=== PATIENT | male | born 1955 | race Caucasian/White ===

== ENCOUNTER → 2017-02-15 | Outpatient (CLI) | payer MEDICARE, OTHER ==
--- NOTE | ~2017-02-15 | PROC NOTE ---
[place], [place] PROCEDURE NOTE NAME: BHARAT HAIRSTON UNIT #: [id number] ROOM: DOCTOR: ROMAN CASTILLO BIRTHDATE: [birth year] DOS: 02/15/2017 MODIFIED BARIUM SWALLOW DOCTOR: RADIOLOGIST: Dr. Ortiz. BACKGROUND INFORMATION: The patient is a 61-year-old male who was seen for a modified barium swallow. This test was ordered to rule out silent aspiration and determine safety with p.o. intake. The patient reported his medical history and stated that he presented to [facility] with pneumonia on December 29, 2016. At that time, he also suffered a heart attack and respiratory failure with need for tracheostomy and mechanical ventilation. He has been weaned from the vent; however, he does still present with a trach. The patient wore a cuffed trach. His cuff was deflated and a Passy-Landen speaking valve was worn, which enabled him to successfully vocalize. The patient was alert and easily able to follow commands for the assessment. He reported that he has been undergoing [facility]. He has been given daily trials with regular food and thin liquid and stated that he has been doing well. He receives primary nutrition by G-tube and is looking to be able to eat by mouth, therefore this study is being conducted. Oral peripheral examination revealed presence of natural teeth with some missing. Lingual, labial, and buccal skills were within normal limits in terms of strength, range of motion, and coordination. Volitional cough was congested. Volitional swallow was weak. METHODS AND MATERIALS USED FOR THE EXAM: The patient was positioned in the lateral plane and examination was viewed under fluoroscopy. The patient was presented with a variety of consistencies to assess swallowing skills including applesauce mixed with barium presented in three-quarter teaspoon amounts, barium-coated banana and bread presented in bite size pieces and thin liquid barium taken by cup and straw. ORAL PHASE: Unremarkable. PHARYNGEAL PHASE: Unremarkable. ESOPHAGEAL PHASE: This phase of the swallow was not formally assessed during this examination. IMPRESSIONS AND RECOMMENDATIONS: Based upon assessment results, this patient displayed safe tolerance for all consistencies given including pureed, solids and thin liquid by cup and straw. It is recommended that the patient begin oral feeding with a regular diet and thin liquids. Safe swallow strategies to implement include upright positioning for meals, small bites and sips, eating slowly and alternating liquids and solids. Results and recommendations were shared with the patient and he verbalized understanding of all information provided. A written copy of recommendations was also sent for education of jail staff. Recommend continued dysphagia therapy for this patient at the jail. [place], [place] PROCEDURE NOTE NAME: BHARAT HAIRSTON UNIT #: [id number] ROOM: DOCTOR: ROMAN CASTILLO BIRTHDATE: [birth year] Thank you very much for this referral. Should you have any questions regarding this patient, please contact the speech pathologist at [phone]. ROMAN CASTILLO CM:PROCNOTE:PROCEDURE NOTE [id number] ROMAN CASTILLO
--- NOTE | ~2017-02-15 | SLPPN ---
[place], [place] AZURE DEVELOPER PROGRESS NOTE NAME: BHARAT HAIRSTON UNIT #: [id number] ROOM: DOCTOR: LEXI TUBBS MD,SHANA Speech Language Pathology Treatment Note Page 1 of 1 Patient Name: BHARAT HAIRSTON Date: 02/15/2017 10:05 AM : 1955 SOC Date: 02/15/2017 [facility]: [facility] Provider #: [id number] Treating Clinician: LIAT Hurtado-AZURE DEVELOPER Referring Physician: SHANA TUBBS Onset Date Code Description Primary Diagnosis: 02/15/2017 DYS.PHAGIA DYSPHAGIA Time In: 09:00 AM Time Out: 10:00 AM AZURE DEVELOPER Interventions and CPT Codes Consisted of: CPT Code Modifiers Minutes Units MOTION FLUOROSCOPY/SWALLOW 52528 60 1 Total Minutes: 60 Total Timed Minutes: 0 Total Untimed Minutes: 60 Total Units: 1 Total Timed Units: 0 Total Untimed Units: 1 02/15/2017 10:06:20 AM LIAT Hurtado-DRE Date/Time State License #: [id number] CM:YOSHI 1019 1019 [facility] THER[facility] [place]
--- NOTE | ~2017-02-15 | SLPPOC ---
[place], [place] SECURITY INSTALLATION SALES TECHNICIAN PLAN OF CARE NAME: BHARAT HAIRSTON UNIT #: [id number] ROOM: DOCTOR: SHANA POPE FACP, MD Speech Language Pathology Plan of Care Page 1 1 (Initial Evaluation) of Patient Name: BHARAT HAIRSTON Date: 02/15/2017 10:01 AM : 1955 SOC Date: 02/15/2017 Provider: [facility] Provider #: [id number] Treating Clinician: LIAT Hurtado-SECURITY INSTALLATION SALES TECHNICIAN Referring Physician: SHANA TUBBS Medicare #: [id number] Visits From SOC: 1 Onset Date Description Code Primary Diagnosis: 02/15/2017 DYS.PHAGIA DYSPHAGIA Subjective Comments: Initial evaluation created to initiate the electronic medical record. Please see [employer] for details. Initial Level Goals Functional Limitation Reporting Swallowing G8996 - Swallowing functional limitation, current status at therapy episode outset and at reporting intervals Current Status: CH - 0 percent impaired, limited or restricted G8997 - Swallowing functional limitation, projected goal status, at therapy episode outset, at reporting intervals, and at discharge or to end reporting Goal Status: CH - 0 percent impaired, limited or restricted G8998 - Swallowing functional limitation, discharge status, at discharge from therapy or to end reporting Discharge Status: CH - 0 percent impaired, limited or restricted 02/15/2017 10:04:39 AM SHANA TUBBS Date/Time LIAT Hurtado-SECURITY INSTALLATION SALES TECHNICIAN Date I certify the need for these services furnished under this plan of treatment while under my care. State License #: [id number] CM:SLPPOC 1019 1019 [facility] THER[facility] [place]
--- NOTE | ~2017-02-15 | SLPIE ---
[place], [place] PROFESSOR OF COUNSELING INITIAL EVALUATION NAME: BHARAT HAIRSTON UNIT #: [id number] ROOM: DOCTOR: LEXI TUBBS MD,SAHNA Speech Language Pathology Initial Evaluation Page 1 1 of Patient Name: BHARAT HAIRSTON Date: 02/15/2017 10:01 AM : 1955 SOC Date: 02/15/2017 Provider: [facility] Provider #: [id number] Treating Clinician: LIAT Hurtado-DRE Referring Physician: SHANA TUBBS Patient Information Address: [address] [place] [address] Physician: SHANA TUBBS Physician #: [facility], [facility], Zip: [place], [place] [address] Occupation: Unknown # of Approved Visits: 0 Gender: Male Washer Assembler: OLGA HAIRSTON Medicare #: [id number] Rehabilitation Information / History Onset Date Code Description Primary Diagnosis: 02/15/2017 DYS.PHAGIA DYSPHAGIA Subjective Comments: Initial evaluation created to initiate the electronic medical record. Please see [employer] for details. Clinical Findings Functional Goals Functional Limitation Reporting Swallowing G8996 - Swallowing functional limitation, current status at therapy episode outset and at reporting intervals Current Status: CH - 0 percent impaired, limited or restricted G8997 - Swallowing functional limitation, projected goal status, at therapy episode outset, at reporting intervals, and at discharge or to end reporting Goal Status: CH - 0 percent impaired, limited or restricted G8998 - Swallowing functional limitation, discharge status, at discharge from therapy or to end reporting Discharge Status: CH - 0 percent impaired, limited or restricted 02/15/2017 10:04:39 AM JOANIE Hurtado Date/Time State License #: [id number] CM:FAYE 1018 1017 [facility] THERAP[facility] [place]
== END | disposition home or self-care (01) ==
LOC: RAD/SH 09:00
DX: J18.9 Pneumonia, unspecified organism (principal); Z93.0 Tracheostomy status

== ENCOUNTER → 2017-04-24 | Day surgery (SDC) | payer MEDICARE, OTHER ==
[~2017-04-24] VITALS: Ht 177.8 cm; Wt 95.7 kg
[~2017-04-24] MED LIST: ASPIRIN81 M1 PO; GLIPIZIDE XL10 M1 PO; INCRUSE EL62.5 MCG/A INH; LISINOPRIL20 MG PO; LOVASTATIN20 MG PO; OXYCONTIN20 M1 PO; SOMA350 MG PO; SYMBICORT1 AE1 INH; TOPROL XL25 MG PO; VENTOLIN H0.09 MG/AC INH; XANAX0.5 MG PO; ZYRTEC10 MG PO
--- NOTE | ~2017-04-24 | PROC NOTE ---
[place], [place] PROCEDURE NOTE NAME: BHARAT HAIRSTON UNIT #: [id number] ROOM: DOCTOR: STEPHANIE PÉREZ MD,BIJU BIRTHDATE: [birth year] DOS: 04/24/2017 PROCEDURE: Bronchoscopy. PREOPERATIVE DIAGNOSES: The patient with cough as well as shortness of breath endotracheal stenosis. The patient has past history of tracheostomy decannulation. POSTOPERATIVE DIAGNOSES: 1. The patient with cough as well as shortness of breath endotracheal stenosis. The patient has past history of tracheostomy and decannulation. 2. Mucus impaction of the airways. PROCEDURE DESCRIPTION: Informed consent was obtained from the patient. The patient was brought to the OR and placed in supine position. Conscious sedation administered by the Anesthesia Department. After achieving appropriate sedation, airway was introduced into the mouth. Bronchoscope was advanced into the airway into laryngeal area. Epiglottis and vocal cords were seen. Bronchoscope was advanced to the vocal cord and tracheal lumen. The tracheal lumen of the patient was noted with [id number] narrowing at the site of tracheostomy with some granulation tissue. The tracheal lumen was able to be identified further down with the bronchoscope without difficulty. The bronchoscope was advanced to the distal portion of the trachea, which shows small to moderate amount of mucoid secretion that was suctioned out. The bao was identified. Right upper, right middle, right lower, left upper, lingula, lower lobe bronchi were all examined with moderate amount of mucus present in endobronchial tree, suctioned out. There was no endobronchial obstructive lesion. The procedure was tolerated by the patient. Postoperative finding will be discussed with the patient later once the patient recovers the effects of acute sedation. BIJU BROWN MD CM:PROCNOTE:PROCEDURE NOTE [id number] BIJU PÉREZ MD
[2017-04-24 08:00] VITALS: BP 150/89
[2017-04-24 08:46] VITALS: BP 149/71
[2017-04-24 09:00] VITALS: BP 116/61
[2017-04-24 09:16] VITALS: BP 115/63
[2017-04-25 15:09] LABS: ACID FAST SPEC PROCESSING Concentration (.)
== END | disposition home or self-care (01) ==
LOC: SDC 04-21 14:00
PROVIDERS: Internal Medicine Critical Care Medicine
DX: J98.09 Other diseases of bronchus, not elsewhere classified (principal); I10 Essential (primary) hypertension; E11.9 Type 2 diabetes mellitus without complications; Z93.0 Tracheostomy status; I25.10 Atherosclerotic heart disease of native coronary artery without angina pectoris; J44.9 Chronic obstructive pulmonary disease, unspecified; F41.9 Anxiety disorder, unspecified; F32.9 Major depressive disorder, single episode, unspecified; Z98.890 Other specified postprocedural states

== ENCOUNTER 2017-05-03 12:42 | Inpatient (IN) | payer MEDICARE, OTHER ==
[~2017-05-03] VITALS: Ht 177.8 cm; Wt 101.2 kg
--- NOTE | ~2017-05-03 | DS ---
[place], [place] DISCHARGE SUMMARY [id number] UNIT #: [id number] ROOM: 528 DOCTOR: BIJU DAWKINS MD BIRTHDATE: [birth year] DOS: 05/05/2017 CHIEF COMPLAINT: Medical management of acute severe tracheobronchitis with acute exacerbation of chronic obstructive pulmonary disease, failed outpatient treatment. HOSPITAL COURSE: A 61-year-old white male admitted to the hospital, was started on treatment with intravenous cefepime and IV Solu-Medrol for the medical management of acute tracheobronchitis Pseudomonas aeruginosa. The patient noted questionable rash of the upper extremities. His antibiotics were changed to meropenem, which has been tolerated by the patient at 1 gram b.i.d. The patient received the antibiotic. The patient without any side effects. Steroids were used for this patient. Moderate uncontrolled hyperglycemia noted secondary to use of the corticosteroids. The respiratory symptoms have been improving at this time. The patient has been planned for discharge as an outpatient therapy. Chest x-ray of the patient was done, does not show any acute pulmonary infiltration. He has PICC line inserted successfully yesterday in the left arm without any difficulty and complications. Cough has been improving. The patient at this time progressive reduction in symptoms of shortness of breath and wheezing has been resolved on physical examination. At this time, the patient reached the maximum benefit of the inpatient treatment and will be discharged home for followup as an outpatient. He has been arranged meropenem 1 gram IV b.i.d. for the next 7 days and we will continue tapering dose of prednisone. He was continued bronchodilators. Tobacco cessation. The patient was advised for this patient as well in the future. He was noted with the tracheal stenosis secondary to previous tracheostomy and he will be sent for intervention for tracheal stenosis as an outpatient to another physician. BIJU BROWN MD CM:FLETCHER [id number] BIJU PÉREZ MD 05/05/17 1612 interface
--- NOTE | ~2017-05-03 | PR ---
[place], [place] PROGRESS NOTE NAME: BHARAT HAIRSTON UNIT #: [id number] ROOM: 528 DOCTOR: BIJU DAWKINS MD BIRTHDATE: [birth year] DOS: 05/04/2017 PULMONARY FOLLOWUP NOTE SUBJECTIVE: The patient has been noted without any acute distress at the present time. He has been noted reduction of the cough. He has been started on cefepime based on sensitivity results for the Pseudomonas aeruginosa tracheobronchitis. The patient developed some rash in the upper extremities and also stated blotchy has occurred and he was administered cefepime yesterday. He denies symptoms of chest pain. Shortness of breath and wheezing has been noted, reduced partially from yesterday. OBJECTIVE: VITAL SIGNS: For the patient which was recorded shows the temperature noted as normal, respiratory rate 20, heart rate 98, blood pressure 140/57. Pulse oxygen saturation on room air was 97% saturation this morning. HEENT: Remains unchanged, trachea without scar. NECK: Remains unchanged as compared from previously. ABDOMEN: Soft, nontender, bowel sounds present. CENTRAL NERVOUS SYSTEM: Noted without any gross focal deficit. LABORATORY DATA: CBC this morning was noted as normal CBC. CMP of the patient of 05/04/2017 was noted with glucose 294, BUN and creatinine were normal. Other labs were normal. IMPRESSION: 1. The patient with acute tracheobronchitis with Pseudomonas aeruginosa. 2. Allergy to CEFEPIME. 3. Acute exacerbation of chronic obstructive pulmonary disease with hyperglycemia secondary to corticosteroids. PLAN OF MANAGEMENT: Continue current dose of corticosteroids and bronchodilators. Discontinue cefepime. Start the patient on meropenem 1 gram IV b.i.d. Continue management of the hyperglycemia. Other supportive therapy, plan and management as in progress. DVT prophylaxis, the patient will be added to the treatment. Usual care, other supportive plan of management. Further treatment changes will be done based on progression of the illness. PT and OT consultation has been ordered. assisted facility consultation was asked for this patient as well. [place], [place] PROGRESS NOTE NAME: BHARAT HAIRSTON UNIT #: [id number] ROOM: 528 DOCTOR: BIJU DAWKINS MD BIRTHDATE: [birth year] BIJU BROWN MD CM:PNTRANS [id number] BIJU PÉREZ MD 05/04/17 1414 interface
--- NOTE | ~2017-05-03 | WRIGHTHP ---
[place], [place] PATIENT HISTORY AND PHYSICAL EXAM [id number] UNIT #: [id number] ROOM: 528 DOCTOR: BIJU DAWKINS MD BIRTHDATE: [birth year] DOS: 05/03/2017 REASON FOR ADMISSION: Nonresolving cough with Pseudomonas aeruginosa resistant to all the oral antibiotic and intravenous therapy and also worsening of the wheezing and other respiratory symptoms. HISTORY OF PRESENT ILLNESS: This is a 61-year-old white male who has been known with past history of tracheostomy which has been decannulated for the management of acute respiratory failure. The patient has been recently noted with tracheal stenosis. The patient with granulation tissue formation at the tracheal site for this patient with past tracheostomy. He has bronchoscopy done that shows evidence of moderate growth of Pseudomonas aeruginosa resistant to the oral antibiotic. The patient has been noted to have progressive increase in cough with fatigue as well as shortness of breath and wheezing. He has been using his medication for COPD management and not responding to treatment. The patient was advised to for hospitalization. The patient has been admitted to the hospital today for further medical management. He has been still noted with symptoms of cough which has been noted with a small amount of sputum expectoration at this time. The cough has been noted to be mildly severe in intensity. Shortness of breath occurs with exertion and wheezing was still noted with minimal exertion and at rest as well. REVIEW OF SYSTEMS: CONSTITUTIONAL: Fatigue and tiredness noted without symptoms of fever or chills. EYES: Denies any burning, redness or tenderness. EARS, NOSE, THROAT: No sore throat, hoarseness, otalgia or postnasal drainage. CARDIOVASCULAR: Denies anginal pain, edema or pain of the lower extremities. GASTROINTESTINAL: Denies dysphagia, nausea, vomiting, diarrhea, abdominal pain, hematemesis, melena, hematochezia or abnormal weight loss. GENITOURINARY: Denies dysuria, suprapubic pain or hematuria. SKIN: Denies lesions or rashes except RASHES OCCURRED YESTERDAY THE PATIENT WAS ADMINISTERED CEFEPIME ANTIBIOTIC. CENTRAL NERVOUS SYSTEM: No dizziness, headache, diplopia or syncopal episode. The patient has been noted with intermittent forgetfulness for the past several months. HOME MEDICATIONS: Metoprolol succinate, simvastatin, lisinopril, Plavix, aspirin, glipizide, Symbicort HFA inhaler and other p.r.n. medications. PAST MEDICAL HISTORY: 1. History of COPD. 2. ____ anxiety neurosis. 3. Type 2 diabetes mellitus. 4. Essential hypertension. 5. Hypercholesterolemia. 6. Chronic moderate obesity. 7. History of peripheral vascular disease. SOCIAL HISTORY: The patient is , has one child. Denies history of [place], [place] PATIENT HISTORY AND PHYSICAL EXAM NAME: BHARAT HAIRSTON UNIT #: [id number] ROOM: 528 DOCTOR: YANG DAWKINS MDM BIRTHDATE: [birth year] alcohol or illicit drug use. Tobacco use is noted up to two packs of cigarettes per day. The patient started in the teens, which was discontinued on 12/30/2016. PAST SURGICAL HISTORY: 1. T and A. 2. Popliteal artery surgery with stent placement. 3. Right renal artery stent insertion. 4. Carpal tunnel release. 5. Tracheostomy in 12/2016. 6. PEG tube insertion in 12/2016, PEG tube and the tracheostomy both have been removed. 7. Fiberoptic bronchoscopy on 04/24/2017. FAMILY HISTORY: Father at 62 years from complication of pulmonary embolism. Mother is currently living, 62 years old with history of bronchial asthma. PHYSICAL EXAMINATION: GENERAL: A 61-year-old white male, currently noted to be awake and alert without any distress. VITAL SIGNS: Height of 5 feet 10 inches, weight of 223 pounds, BMI 31.9. Normal temperature noted on admission, respiratory rate 20, heart rate 95, blood pressure 141/65. Pulse oxygen saturation noted on room air is 95% saturation at rest. HEENT: Head atraumatic. Eyes nonicterus. NECK: Previous tracheal scar noted in the lower portion of the neck. CARDIOVASCULAR: S1, S2 is audible. LUNGS: Noted with general reduction in breath sounds with moderate expiratory wheezing. There are no crackles. ABDOMEN: Soft, nontender. Bowel sounds present. CENTRAL NERVOUS SYSTEM: The patient is noted to have cranial nerves 2-12 intact. No focal deficits. MUSCULOSKELETAL: Does not show any acute deformities. SKIN: Shows fine rash in the upper extremities at the present time. LABORATORY DATA: Bronchial washings from 04/24/2017 showed moderate growth of Pseudomonas aeruginosa, resistant to fluoroquinolones and noted sensitive to the Primaxin, meropenem, cefepime and ceftazidime. It was also noted to be resistant to the tobramycin. Acid fast bacillus for the patient, initially reported as negative, pending culture results from 04/24/2017. CBC on 05/03/2017, on admission WBC count was normal, hemoglobin 13.5, hematocrit 40.6 and platelet count 157,000. The CMP on admission on 05/03/2017, glucose 298, BUN and creatinine were normal, remaining CMP was normal. Chest x-ray previous in the office does not show an acute infiltration. IMPRESSION: 1. The patient has been noted with failed outpatient treatment with acute exacerbation of chronic obstructive pulmonary disease with resistant pulmonary infection. The patient with bronchitis with Pseudomonas aeruginosa. [place], [place] PATIENT HISTORY AND PHYSICAL EXAM NAME: BHARAT HAIRSTON UNIT #: [id number] ROOM: 528 DOCTOR: STEPHANIE PÉREZ MD,BIJU BIRTHDATE: [birth year] 2. Previous history of nicotine abuse. The patient has discontinued previously. 3. History of peripheral vascular disease. 4. Type 2 diabetes mellitus. 5. 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 6. Agkl-ku-liiaomng obesity. 7. Essential hypertension. 8. Intermittent forgetfulness, possibility was not clear. PLAN OF TREATMENT: The patient has been started on IV Solu-Medrol, bronchodilators and sliding insulin coverage. Home medications have been resumed. IV cefepime was started as well. The cefepime will be changed to another antibiotic because of the current allergies. Bronchodilators have been ordered every 4 hours. Followup the respiratory status closely. Possible senior living facility placement, outpatient therapy and antibiotics. The patient is settled on the current medications. Usual care, other supportive plan of therapy and care. BIJU BROWN MD CM:HISPHYS:PATIENT HISTORY AND PHYSICAL EXAMINATION [id number] BIJU PÉREZ MD 05/04/17 1606 interface
[2017-05-03 12:00] VITALS: BP 141/65
[2017-05-03 14:25] LABS: BASO # 0.1 10*3/uL (0.0-0.1); BASO % 0.7 % (0.0-1.0); HEMATOCRIT 40.6 % (42.0-52.0); HEMOGLOBIN 13.5 g/dl (14.0-18.0); LYMPH # 2.2 10*3/uL (1.3-4.4); LYMPH % 30.9 % (27.0-41.0); MEAN CELL VOLUME 93.8 fl (80.0-94.0); MEAN CORPUSCULAR HGB 31.2 pg (27.0-31.0); MEAN CORPUSCULAR HGB CONC 33.3 g/dl (33.0-37.0); MEAN PLATELET VOLUME 10.9 fl (9.6-12.3); MONO # 0.5 10*3/uL (0.1-1.0); MONO % 7.3 % (3.0-9.0); NEUT # 4.3 10*3/uL (2.3-7.9); NEUT % 60.8 % (47.0-73.0); PLATELET COUNT AUTOMATED 157 10*3/uL (130-400); RED BLOOD COUNT 4.33 10*6/uL (4.50-5.90); RED CELL DISTRI WIDTH 13.2 % (0-14.5)
[2017-05-03 14:33] LABS: ALBUMIN 3.2 gm/dl (3.1-4.5); ALKALINE PHOSPHATASE 77 U/L (45-117); BILIRUBIN, TOTAL 0.2 mg/dl (0.2-1.0); BUN 18 mg/dl (7-24); CARBON DIOXIDE 28 mmol/L (21-32); CHLORIDE 99 mmol/L (98-107); EST GLOM FILT AFRICAN AMERICAN > 60 ml/min; GLUCOSE 298 mg/dL (65-99); POTASSIUM 3.9 mmol/L (3.5-5.1); SGOT/AST 16 IU/L (3-35); SGPT/ALT 28 U/L (12-78); SODIUM 136 mmol/L (136-145)
[2017-05-03 16:00] VITALS: BP 107/71
[2017-05-03 20:00] VITALS: BP 131/81
[2017-05-04] VITALS: BP 149/59
[2017-05-04 07:16] LABS: BASO % 0.1 % (0.0-1.0); HEMATOCRIT 43.4 % (42.0-52.0); HEMOGLOBIN 14.7 g/dl (14.0-18.0); LYMPH # 0.9 10*3/uL (1.3-4.4); LYMPH % 8.7 % (27.0-41.0); MEAN CELL VOLUME 93.3 fl (80.0-94.0); MEAN CORPUSCULAR HGB 31.6 pg (27.0-31.0); MEAN CORPUSCULAR HGB CONC 33.9 g/dl (33.0-37.0); MEAN PLATELET VOLUME 10.8 fl (9.6-12.3); MONO # 0.1 10*3/uL (0.1-1.0); MONO % 0.9 % (3.0-9.0); NEUT # 9.5 10*3/uL (2.3-7.9); NEUT % 89.9 % (47.0-73.0); PLATELET COUNT AUTOMATED 181 10*3/uL (130-400); RED BLOOD COUNT 4.65 10*6/uL (4.50-5.90); RED CELL DISTRI WIDTH 12.9 % (0-14.5); WHITE BLOOD COUNT 10.5 10*3/uL (4.8-10.8)
[2017-05-04 07:46] LABS: ALBUMIN 3.3 gm/dl (3.1-4.5); ALKALINE PHOSPHATASE 86 U/L (45-117); BILIRUBIN, TOTAL 0.2 mg/dl (0.2-1.0); BUN 18 mg/dl (7-24); CARBON DIOXIDE 27 mmol/L (21-32); CHLORIDE 101 mmol/L (98-107); EST GLOM FILT AFRICAN AMERICAN > 60 ml/min; GLUCOSE 294 mg/dL (65-99); POTASSIUM 4.6 mmol/L (3.5-5.1); SGOT/AST 13 IU/L (3-35); SGPT/ALT 27 U/L (12-78); SODIUM 136 mmol/L (136-145); TOTAL PROTEIN 7.5 gm/dL (6.4-8.2)
[2017-05-04 08:00] VITALS: BP 149/57
[2017-05-04 16:00] VITALS: BP 130/60
[2017-05-05] VITALS: BP 157/76
[2017-05-05 06:29] LABS: BASO % 0.1 % (0.0-1.0); EOS % 0.1 % (1.0-4.0); HEMATOCRIT 42.5 % (42.0-52.0); HEMOGLOBIN 14.1 g/dl (14.0-18.0); IG # 0.1 10*3/uL (0.0-0.1); LYMPH # 1.1 10*3/uL (1.3-4.4); LYMPH % 8.2 % (27.0-41.0); MEAN CELL VOLUME 93.8 fl (80.0-94.0); MEAN CORPUSCULAR HGB 31.1 pg (27.0-31.0); MEAN CORPUSCULAR HGB CONC 33.2 g/dl (33.0-37.0); MEAN PLATELET VOLUME 11.3 fl (9.6-12.3); MONO # 0.4 10*3/uL (0.1-1.0); MONO % 2.7 % (3.0-9.0); NEUT # 11.9 10*3/uL (2.3-7.9); NEUT % 88.2 % (47.0-73.0); PLATELET COUNT AUTOMATED 195 10*3/uL (130-400); RED BLOOD COUNT 4.53 10*6/uL (4.50-5.90); RED CELL DISTRI WIDTH 13.2 % (0-14.5); WHITE BLOOD COUNT 13.5 10*3/uL (4.8-10.8)
[2017-05-05 06:58] LABS: ALBUMIN 3.3 gm/dl (3.1-4.5); ALKALINE PHOSPHATASE 79 U/L (45-117); BILIRUBIN, TOTAL 0.2 mg/dl (0.2-1.0); BUN 22 mg/dl (7-24); CARBON DIOXIDE 26 mmol/L (21-32); CHLORIDE 101 mmol/L (98-107); EST GLOM FILT AFRICAN AMERICAN > 60 ml/min; GLUCOSE 275 mg/dL (65-99); POTASSIUM 4.4 mmol/L (3.5-5.1); SGOT/AST 12 IU/L (3-35); SGPT/ALT 24 U/L (12-78); SODIUM 136 mmol/L (136-145); TOTAL PROTEIN 7.3 gm/dL (6.4-8.2)
[2017-05-05 07:05] LABS: FOLIC ACID 13.82 ng/mL (>5.38); THYROID STIM HORMONE (HS) 0.159 uIU/ml (0.358-4.75)
[2017-05-05 08:00] VITALS: BP 151/70
[2017-05-05] MEDS ORDERED: MEROPENEM1 G1 IV (09:39)
[2017-05-05 16:00] VITALS: BP 136/66
[2017-05-05] MEDS ORDERED: PREDNISONE10 MG PO (17:11)
[2017-05-08] MEDS ORDERED: INCRUSE EL62.5 MCG/A INH (15:54)
[2017-05-08] MEDS ORDERED: LISINOPRIL-HYDR1 TA4 PO (15:57)
== END 2017-05-05 19:30 | disposition home or self-care (01) | DRG 192 ==
LOC: 5E 12:42
PROVIDERS: Internal Medicine Critical Care Medicine
PROC: 02HV33Z Insertion of Infusion Device into Superior Vena Cava, Percutaneous Approach (ICD-10-PCS; principal; 2017-05-04)
DX: J44.0 Chronic obstructive pulmonary disease with (acute) lower respiratory infection (principal); E11.51 Type 2 diabetes mellitus with diabetic peripheral angiopathy without gangrene; J20.9 Acute bronchitis, unspecified; J44.1 Chronic obstructive pulmonary disease with (acute) exacerbation; E11.65 Type 2 diabetes mellitus with hyperglycemia; B96.5 Pseudomonas (aeruginosa) (mallei) (pseudomallei) as the cause of diseases classified elsewhere; F17.200 Nicotine dependence, unspecified, uncomplicated; J39.8 Other specified diseases of upper respiratory tract; T38.0X5A Adverse effect of glucocorticoids and synthetic analogues, initial encounter; I10 Essential (primary) hypertension; E66.8 Other obesity; E78.00 Pure hypercholesterolemia, unspecified; Z95.9 Presence of cardiac and vascular implant and graft, unspecified; Y92.89 Other specified places as the place of occurrence of the external cause; Z88.1 Allergy status to other antibiotic agents; Z68.31 Body mass index [BMI] 31.0-31.9, adult